=== PATIENT | male | born 1950 | race Caucasian/White ===

== ENCOUNTER → 2016-10-29 | Outpatient (CLI) | payer MEDICARE, OTHER ==
[~2016-10-29] MED LIST: ABILIFY PO; ADVAIR 100/28 DISKU1 IH; ALPRAZOLAM1 MG PO; ASPIRIN 32325 MG/TAB PO; ASPIRIN 81M81 MG/TA2 PO; B COMPLEX1 TA4 PO; B100 COMPLEX UL1 TA1 PO; BENADRYL PO; CENTRUM1 TAB PO; COMBIVENT INH14.7 GM IH; COZAAR 50MG50 MG/TAB PO; CRANBERRY CONC500 MG PO; CRANBERRY1 CAP PO; CRESTOR5 MG PO; EXELON PO; EXELON6 MG PO; FLONASE NASAL S16 GM NS; GEODON 20 MG20 MG PO; LAMICTAL150 MG PO; LEVAQUIN 750MG750 MG PO; LEXAPRO10 MG PO; LIPITOR20 MG PO; LIPITOR40 MG PO; METOPROLOL25 MG PO; PERCOCET 325 MG1 TA2 PO; PLAVIX 75MG TAB75 MG PO; PRIL40 PO; PROTONIX40 MG/Pack PO; PROVIGIL PO; PROVIGIL200 MG PO; STOOL SOFTENER100 MG PO; TESTOLIN50 MG/ML IM; TOPAMAX 25MG25 M1 PO; ULTRAM 50MG TAB50 MG PO; VITAMIN B-100 PO; VITAMIN C BUFF500 MG PO; VITAMIN C500 MG PO; VITAMIN D32000 IU PO; XANAX 1MG1 MG PO; XANAX0.25 MG PO; XYZAL5 MG PO; ZOLOFT50 MG PO
== END ==
LOC: BHSO 08:58
DX: F31.74 Bipolar disorder, in full remission, most recent episode manic (principal)

== ENCOUNTER → 2017-01-28 | Outpatient (CLI) | payer MEDICARE, OTHER | LOC: BHSO 08:44 | DX: F31.74 Bipolar disorder, in full remission, most recent episode manic (principal) ==

== ENCOUNTER → 2017-05-21 | Outpatient (CLI) | payer MEDICARE, OTHER | LOC: BHSO 10:08 | DX: F90.0 Attention-deficit hyperactivity disorder, predominantly inattentive type (principal) ==

== ENCOUNTER → 2017-07-01 | Outpatient (CLI) | payer MEDICARE, OTHER | LOC: BHSO 08:51 | DX: F43.10 Post-traumatic stress disorder, unspecified (principal) ==

== ENCOUNTER 2017-07-21 05:25 | Emergency (ER) | payer MEDICARE, OTHER ==
[~2017-07-21] VITALS: Ht 182.9 cm; Wt 109.1 kg
[2017-07-21 06:08] LABS: BASO # 0.1 (0.0-0.2); BASO % 0.4 % (0.0-2.0); EOS # 0.1 (0.0-0.7); GRAN # 9.5 (1.4-6.5); GRAN % 73.2 % (42.2-75.2); HEMATOCRIT 42.9 % (42.0-52.0); HEMOGLOBIN 14.3 g/dl (13.5-18.0); LYMPH # 2.1 (1.2-3.4); LYMPH % 16.3 % (20.0-51.0); MEAN CELL VOLUME 97 fl (80.0-100.0); MEAN CORPUSCULAR HEMOGLOBIN 32 pg (27.0-31.0); MEAN CORPUSCULAR HGB CONC 33 g/dl (33.0-37.0); MEAN PLATELET VOLUME 10.6 fl (7.4-10.4); MONO # 1.1 (0.1-0.6); MONO % 8.7 % (1.7-9.3); PLATELET COUNT 219 K/mm3 (130-400); RED BLOOD COUNT 4.41 M/mm3 (4.20-5.60); REDCELL DISTRIBUTION WIDTH-CV 11.7 % (11.5-14.5); WHITE BLOOD COUNT 12.9 K/mm3 (4.8-10.8)
[2017-07-21 06:18] LABS: ADJUSTED CALCIUM 8.9 mg/dL (8.4-10.2); ALBUMIN 4.2 gm/dL (3.5-5.0); BILIRUBIN,TOTAL 1.4 mg/dL (0.0-1.0); CALCIUM 9.1 mg/dL (8.4-10.2); CREATININE, serum 0.92 mg/dL (0.66-1.25); POTASSIUM 3.5 mmol/L (3.4-5.0); TOTAL PROTEIN 7.6 gm/dL (6.4-8.2)
[2017-07-21 06:57] LABS: PH 5 (5-8); SQUAMOUS EPITHELIAL 0-2 /hpf; URINE APPEARANCE Hazy; URINE BACTERIA Rare /hpf; URINE BILIRUBIN Negative (NEGATIVE); URINE BLOOD Negative (NEGATIVE); URINE COLOR Yellow; URINE GLUCOSE Negative (NEGATIVE); URINE KETONE Negative (NEGATIVE); URINE RBC 0-2 /hpf; URINE UROBILINOGEN Negative (NEGATIVE); URINE WBC 0-2 /hpf
[2017-07-21] MEDS ORDERED: MELATONIN5 M1 PO (06:57)
[2017-07-21] MEDS ORDERED: THE MEDICINE S200 M2 PO (06:57)
[2017-07-21] MEDS ORDERED: CYMBALTA 60MG60 MG PO (06:58)
[2017-07-21] MEDS ORDERED: NUVIGIL50 MG PO (06:59)
[2017-07-21] MEDS ORDERED: HYZAAR 50-12.1 UDTAB PO (07:00)
[2017-07-21] MEDS ORDERED: SINGULAIR 110 MG/TAB PO (07:01)
[2017-07-21] MEDS ORDERED: NORCO 325 MG-51 TAB PO (07:10)
[2017-07-21] MEDS ORDERED: FLOMAX 0.40.4 MG/CAP PO (07:10)
[2017-07-21] MEDS ORDERED: LEVAQUIN 5500 MG/TA1 PO (09:50)
[2017-07-21 10:43] VITALS: BP 121/73; PULSE 62
== END 2017-07-21 10:43 | disposition home or self-care (01) ==
LOC: COL.ER 05:25
PROVIDERS: Emergency Medicine
DX: R10.9 Unspecified abdominal pain (principal); J18.1 Lobar pneumonia, unspecified organism; F31.9 Bipolar disorder, unspecified; F43.10 Post-traumatic stress disorder, unspecified; I10 Essential (primary) hypertension; E78.5 Hyperlipidemia, unspecified; Z87.442 Personal history of urinary calculi
CPT/HCPCS: J0696; J1885; J2270; J2405; J7030; Q9967

== ENCOUNTER → 2017-07-23 | Outpatient (CLI) | payer MEDICARE, OTHER ==
[~2017-07-23] MED LIST changes: +CYMBALTA 60MG60 MG PO; +FLOMAX 0.40.4 MG/CAP PO; +HYZAAR 50-12.1 UDTAB PO; +LEVAQUIN 5500 MG/TA1 PO; +MELATONIN5 M1 PO; +NORCO 325 MG-51 TAB PO; +NUVIGIL50 MG PO; +SINGULAIR 110 MG/TAB PO; +THE MEDICINE S200 M2 PO
== END ==
LOC: COL.RAD 15:05
DX: J90 Pleural effusion, not elsewhere classified (principal); J98.11 Atelectasis; J18.1 Lobar pneumonia, unspecified organism; R79.1 Abnormal coagulation profile
CPT/HCPCS: Q9967

== ENCOUNTER → 2017-10-21 | Outpatient (CLI) | payer MEDICARE, OTHER | LOC: BHSO 08:19 | DX: F31.81 Bipolar II disorder (principal) | CPT/HCPCS: G0463 ==

== ENCOUNTER → 2018-01-19 | Outpatient (CLI) | payer MEDICARE, OTHER | LOC: BHSO 09:21 | DX: F31.81 Bipolar II disorder (principal) | CPT/HCPCS: G0463 ==

== ENCOUNTER 2018-03-25 12:14 | Emergency (ER) | payer MEDICARE, OTHER ==
[~2018-03-25] VITALS: Ht 182.9 cm; Wt 104.5 kg
[2018-03-25 12:15] VITALS: TEMP 98.2
[2018-03-25 13:04] LABS: ALBUMIN 4.4 gm/dL (3.5-5.0); BILIRUBIN,TOTAL 1.1 mg/dL (0.0-1.0); CALCIUM 9.7 mg/dL (8.4-10.2); CREATININE, serum 1.1 mg/dL (0.66-1.25); POTASSIUM 4.3 mmol/L (3.4-5.0); TOTAL PROTEIN 8.6 gm/dL (6.4-8.2)
[2018-03-25 13:06] LABS: PROTHROMBIN TIME 11.5 SECONDS (9.7-12.8)
[2018-03-25 13:08] LABS: BASO % 0.3 % (0.0-2.0); EOS # 0.1 (0.0-0.7); EOS % 0.8 % (0-4.0); GRAN # 7.3 (1.4-6.5); GRAN % 72.7 % (42.2-75.2); HEMOGLOBIN 15.3 g/dl (13.5-18.0); LYMPH # 1.9 (1.2-3.4); LYMPH % 18.7 % (20.0-51.0); MEAN CELL VOLUME 95 fl (80.0-100.0); MEAN CORPUSCULAR HEMOGLOBIN 32 pg (27.0-31.0); MEAN CORPUSCULAR HGB CONC 34 g/dl (33.0-37.0); MEAN PLATELET VOLUME 10.4 fl (7.4-10.4); MONO # 0.7 (0.1-0.6); MONO % 7.1 % (1.7-9.3); PLATELET COUNT 232 K/mm3 (130-400); RED BLOOD COUNT 4.74 M/mm3 (4.20-5.60); REDCELL DISTRIBUTION WIDTH-CV 11.9 % (11.5-14.5)
[2018-03-25 14:50] VITALS: BP 105/80; PULSE 90
== END 2018-03-25 14:51 | disposition home or self-care (01) ==
LOC: COL.ER 12:14
PROVIDERS: Nurse Practitioner
DX: K92.1 Melena (principal); I10 Essential (primary) hypertension; F41.9 Anxiety disorder, unspecified; Z87.442 Personal history of urinary calculi

== ENCOUNTER → 2018-04-14 | Outpatient (CLI) | payer MEDICARE, OTHER | LOC: BHSO 08:08 | DX: F43.10 Post-traumatic stress disorder, unspecified (principal) | CPT/HCPCS: G0463 ==

== ENCOUNTER → 2018-07-23 | Outpatient (CLI) | payer MEDICARE, OTHER | LOC: BHSO 09:02 | DX: F43.10 Post-traumatic stress disorder, unspecified (principal) | CPT/HCPCS: G0463 ==

== ENCOUNTER → 2018-10-15 | Outpatient (CLI) | payer MEDICARE, OTHER | LOC: COL.RAD 07:59 | DX: M48.02 Spinal stenosis, cervical region (principal); M50.30 Other cervical disc degeneration, unspecified cervical region ==

== ENCOUNTER → 2018-10-22 | Outpatient (CLI) | payer MEDICARE, OTHER | LOC: BHSO 08:56 | DX: F43.10 Post-traumatic stress disorder, unspecified (principal) | CPT/HCPCS: G0463 ==

== ENCOUNTER → 2019-04-15 | Outpatient (CLI) | payer MEDICARE, OTHER | LOC: BHSO 08:46 | DX: F43.10 Post-traumatic stress disorder, unspecified (principal) | CPT/HCPCS: G0463 ==

== ENCOUNTER 2019-05-06 12:01 | Emergency (ER) | payer MEDICARE, OTHER ==
[~2019-05-06] VITALS: Ht 182.9 cm; Wt 104.5 kg
[2019-05-06 12:07] VITALS: TEMP 98.2
[2019-05-06 13:38] VITALS: BP 138/77; PULSE 47
== END 2019-05-06 13:42 | disposition home or self-care (01) ==
LOC: COL.ER 12:01
DX: T63.461A Toxic effect of venom of wasps, accidental (unintentional), initial encounter (principal)
CPT/HCPCS: J7512

== ENCOUNTER → 2019-07-12 | Outpatient (CLI) | payer MEDICARE, OTHER | LOC: BHSO 14:02 | DX: F31.77 Bipolar disorder, in partial remission, most recent episode mixed (principal) | CPT/HCPCS: G0463 ==

== ENCOUNTER → 2019-08-03 | Outpatient (CLI) | payer MEDICARE, OTHER | LOC: BHSO 10:20 | DX: F43.10 Post-traumatic stress disorder, unspecified (principal) | CPT/HCPCS: G0463 ==

== ENCOUNTER → 2019-11-03 | Outpatient (CLI) | payer MEDICARE, OTHER | LOC: BHSO 10:06 | DX: F43.10 Post-traumatic stress disorder, unspecified (principal) | CPT/HCPCS: G0463 ==

== ENCOUNTER → 2020-04-13 | Outpatient (CLI) | payer MEDICARE, OTHER | LOC: BHSO 13:38 | DX: F43.10 Post-traumatic stress disorder, unspecified (principal) | CPT/HCPCS: G0463 ==

== ENCOUNTER → 2020-08-03 | Outpatient (CLI) | payer MEDICARE, OTHER | LOC: BHSO 09:05 | DX: F43.10 Post-traumatic stress disorder, unspecified (principal) | CPT/HCPCS: G0463 ==

== ENCOUNTER 2024-02-02 15:00 | Outpatient (RCR) | payer MEDICARE, OTHER ==
[~2024-02-02 15:00] MED LIST changes: +AZO-CRANBERRY450 MG PO; +COGENTIN 1MG1 MG/TAB PO; +COZAAR100 MG PO; +CYMBALTA 30MG30 MG PO; +EXELON3 MG PO; +GEODON 40MG40 MG PO; +GEODON60 MG PO; +MAGNESIUM200 MG PO; +MULTIPLE VITAMI1 CAP PO; +PROTONIX 40MG T40 MG PO
== END 2024-02-03 | disposition home or self-care (01) ==
LOC: WSST
DX: R48.9 Unspecified symbolic dysfunctions (principal); R41.3 Other amnesia; F03.90 Unspecified dementia, unspecified severity, without behavioral disturbance, psychotic disturbance, mood disturbance, and anxiety

== ENCOUNTER 2024-03-30 15:00 | Outpatient (RCR) | payer MEDICARE, OTHER | END 2024-04-04 | disposition home or self-care (01) | LOC: WSST | DX: R48.9 Unspecified symbolic dysfunctions (principal); R41.3 Other amnesia; F03.90 Unspecified dementia, unspecified severity, without behavioral disturbance, psychotic disturbance, mood disturbance, and anxiety ==

== ENCOUNTER 2024-04-26 12:45 | Outpatient (RCR) | payer MEDICARE, OTHER | END 2024-05-05 | disposition home or self-care (01) | LOC: WSST | DX: R48.9 Unspecified symbolic dysfunctions (principal); R41.3 Other amnesia; F03.90 Unspecified dementia, unspecified severity, without behavioral disturbance, psychotic disturbance, mood disturbance, and anxiety ==

== ENCOUNTER 2024-06-03 12:45 | Outpatient (RCR) | payer MEDICARE, OTHER | END 2024-06-05 | disposition home or self-care (01) | LOC: WSST | DX: R41.3 Other amnesia (principal); R48.9 Unspecified symbolic dysfunctions ==

== ENCOUNTER 2024-06-24 12:45 | Outpatient (RCR) | payer MEDICARE, OTHER | END 2024-07-05 | disposition home or self-care (01) | LOC: WSST | DX: R48.9 Unspecified symbolic dysfunctions (principal); R41.3 Other amnesia; F03.90 Unspecified dementia, unspecified severity, without behavioral disturbance, psychotic disturbance, mood disturbance, and anxiety ==